=== PATIENT | male | born 1950 | race Caucasian/White ===

== ENCOUNTER → 2019-03-07 | Outpatient (CLI) | payer OTHER ==
[~2019-03-07] VITALS: Ht 182.9 cm; Wt 88.5 kg
[~2019-03-07] MED LIST: CLONAZEPAM 0.50.5 M1 PO; OMEGA 3 500 SO1 EACH PO; SUPER THERAVIT1 EACH PO; VITAMIN C500 M1 PO; VITAMIN D-32000 UNIT PO; VITAMIN E400 UNI5 PO
--- NOTE | 2019-03-10 17:06 | PATH ---
[facility] [place] [address] PATHOLOGY RPT PROCEDURE Name: EARL REYES Room #: REG [facility] Kim.#: [id number] Admission: 03/07/19 Date of : 54 Discharge: Report #: [id number] Path Case #: [id number] [facility] Accession Number: [id number] . 01 Material submitted: . hepatic flexure - HEPATIC FLEXURE POLYP . 01 Clinical history: . Pre-op diagnosis: Family history of colon cancer Post-op diagnosis: Polyp . 02 Diagnosis: Polyp, hepatic flexure, endoscopic biopsy: - Compatible with a hyperplastic polyp. - Negative for dysplasia. . (IUV:mml; 03/10/2019) QLM 03/10/2019 1205 Local . 02 Electronically signed: . Ellen Villagomez MD, Pathologist NPI- [id number] . 01 Gross description: . The specimen is received in formalin, labeled "Earl Reyes Jr., hepatic polyp". (Per requisition, hepatic flexure polyp). Received are two segments of pale ochoa soft tissue ranging in size from 0.3 to 0.4 cm in maximum dimensions. The specimen is submitted entirely in cassette A1. (CAA; 03/07/2019) QAC/QAC 03/10/2019 1204 Local . 02 Pathologist provided ICD-10: K63.5 . 02 CPT . 850872 Specimen Comment: A courtesy copy of this report has been sent to Specimen Comment: [phone], . Specimen Comment: Report sent to / DR MONTIEL Performed at: [address], [place] [id number] MD Donnell Jones MD Phone: [phone] Performed at: [address] [id number] MD Ellen Villagomez MD Phone: [phone]
--- NOTE | 2019-03-13 08:04 | P ---
[facility] [place] [address] PROCEDURE REPORT Name: EARL REYES Maritza BARNARD Room #: REG [facility]#: [id number] Admission: 03/07/19 Attend Phys: Earl Jamison MD Discharge: Date of : 54 Report #: [id number] THIS REPORT FOR: //name// CC: Earl Madden MD DATE OF SERVICE: 03/07/2019 OUTPATIENT COLONOSCOPY REPORT BRIEF HISTORY: The patient is a 68-year-old male with a family history of colon cancer. PREOPERATIVE DIAGNOSIS: Family history of colon cancer. POSTOPERATIVE DIAGNOSES: 1. Diminutive hepatic flexure polyp. 2. Mild sigmoid diverticulosis coli. 3. Small internal hemorrhoids. MEDICATIONS: Deep sedation with propofol per anesthesia. SPECIMENS: Hepatic flexure polyp. ESTIMATED BLOOD LOSS: Less than 3 mL. PROCEDURE: Colonoscopy to cecum and terminal ileum with biopsy. FINDINGS: Prior to propofol sedation, procedure of colonoscopy discussed with the patient as well as potential risks and its complications. He indicates he understands and desires to proceed. DESCRIPTION OF PROCEDURE: With the patient in left lateral decubitus position, digital examination was completed, which revealed no abnormalities. Subsequently, the Olympus video colonoscope was introduced in the rectum, advanced under direct vision to the cecum. Done with minimal difficulty. The cecum was identified by the ileocecal valve and the appendiceal orifice. I was able to visualize the distal segment of terminal ileum, which was inspected and noted to be unremarkable. At that point, the scope was slowly withdrawn and careful circumferential views obtained including retroflexion of the scope in the ascending colon. As the scope was withdrawn, the mucosa was inspected and noted to be within normal limits, normal vascular pattern, normal light reflex. Overall, the prep was good. No abnormalities were noted until the hepatic flexure was reached and a diminutive polyp was seen and removed with biopsy forceps. Scope was further withdrawn and no additional neoplastic lesions were [facility] [address] [place] [address] PROCEDURE REPORT Name: EARL REYES JR Room #: REG [facility]#: [id number] Admission: 03/07/19 Attend Phys: Earl Jamison MD Discharge: Date of : 54 Report #: [id number] seen. However, in the sigmoid colon, there was mild diverticular disease with a few small diverticula. There was no endoscopic evidence of diverticulitis. Scope was withdrawn in the rectum, no abnormalities were seen. Upon retroflexion, however, small internal hemorrhoids were seen. Scope was withdrawn. The patient tolerated the procedure well. CONDITION OF THE PATIENT UPON DISCHARGE: Following procedure, the patient drowsy, aroused, conversant and will be discharged home when fully ambulatory. INSTRUCTIONS TO THE PATIENT AND FAMILY AT THE TIME OF DISCHARGE: One diminutive polyp identified and removed as noted above. We will follow up on the path and make further recommendations. Given the fact that his mother was in her 80s, wrists to him for colon cancer in terms of family genetics is fairly low. However, he did have one polyp. If this polyp is an adenomatous, return in 5 years; if it is not an adenoma, then 10 years would be indicated. Last colonoscopy in 12/2011. Withdrawal time from the cecum was 16 minutes. <ELECTRONICALLY SIGNED> By: Earl Jamison MD 03/13/19 0804 [id number] 1750 Earl Jamison MD /nt
== END | disposition home or self-care (01) ==
LOC: GI 07:42
DX: Z12.11 Encounter for screening for malignant neoplasm of colon (principal); Z80.0 Family history of malignant neoplasm of digestive organs; K63.5 Polyp of colon; K57.30 Diverticulosis of large intestine without perforation or abscess without bleeding; K64.8 Other hemorrhoids; E78.5 Hyperlipidemia, unspecified; Z98.890 Other specified postprocedural states; Z79.899 Other long term (current) drug therapy
CPT/HCPCS: 62110; 62900

== ENCOUNTER → 2019-11-10 | Outpatient (CLI) | payer OTHER | LOC: CAT 08:33 | PROVIDERS: ATTEND Family Medicine | DX: Z13.6 Encounter for screening for cardiovascular disorders (principal); I25.10 Atherosclerotic heart disease of native coronary artery without angina pectoris; E78.00 Pure hypercholesterolemia, unspecified ==

== ENCOUNTER → 2019-11-24 | Outpatient (CLI) | payer OTHER | LOC: SJCVCIMAG 11:04 | PROVIDERS: ATTEND Family Medicine | DX: I34.0 Nonrheumatic mitral (valve) insufficiency (principal); I77.810 Thoracic aortic ectasia; R93.1 Abnormal findings on diagnostic imaging of heart and coronary circulation; E78.5 Hyperlipidemia, unspecified ==